=== PATIENT | male | born 1965 | race African-American/Black ===

== ENCOUNTER 2025-02-28 09:26 | Outpatient (AMB) | payer OTHER, SELFPAY ==
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
--- OUTSIDE RECORDS SUMMARY | 2025-02-28 10:33 | XMS_ITS | Clinical Summary ---
Author Organization [address] [facility] Address [address] [place] [address] Phone Care Team Providers Care Gear Repairer Name Role Phone Alex Casanova MD Primary Care Provider [phone] Allergies Active Allergy Reactions Criticality Noted Date Comments Egg 04/06/2018 Other Reaction(s): Hives/Urticaria Ibuprofen 04/06/2018 Other Reaction(s): Hives/Urticaria Medications budesonide-for moteroL (SYMBICORT) 160-4.5 mcg/actuation inhaler Inhale 2 Puffs into the lungs 2 times daily. Active omeprazole (PriLOSEC) [address] capsule TAKE 1 CAPSULE BY MOUTH EVERY DAY 3 Active OXcarbazepine (TRILEPTAL) 300 mg tablet Take 300 mg by mouth 2 times daily. Active tiotropium (Spiriva Respimat) 2.5 mcg/actuation inhalation spray Inhale into the lungs. Active zonisamide (ZONEGRAN) 100 mg capsule Take 100 mg by mouth daily. Take 1 capsule by mouth three times a day Active omeprazole (PriLOSEC) [address] capsule Take 1 capsule (40 mg total) by mouth 1 (one) time each day. 90 capsule 1 5 Active atorvastatin (LIPITOR) 40 mg tablet Take 1 tablet (40 mg total) by mouth 1 (one) time each day. 90 tablet 1 5 Active omeprazole (PriLOSEC) [address] capsule TAKE 1 CAPSULE BY MOUTH EVERY DAY 90 capsule 1 5 02/01/20 25 Discontinued atorvastatin (LIPITOR) 40 mg tablet TAKE 1 TABLET BY MOUTH EVERY DAY 90 tablet 1 0102/03/20 25 Discontinued Active Problems Problem Noted Date Diagnosed Date Emphysema lung ([facility] V24, [facility] V28) 2024 Pulmonary nodule 10/06/2024 Smoker 10/06/2024 Chronic bronchitis ([facility] V24, [facility] V28) Gastroesophageal reflux disease without esophagi tis 04/06/2018 Hyperlipidemia 04/06/2018 Seizure ([facility] V24, [facility] V28) 04/06/2018 Shoulder tendinitis, right 04/06/2018 Immunizations Immunization Administration Dates Next Due Pneumococcal conjugate 13 va lent (Prevnar 13, PCV13) 2mo and older 05/13/2019 Pneumococcal polysaccharide 23 valent (Pneumovax 23) 2yo and older 11/19/2021 Family History Relation Name Status Comments Father Mother Alive Social History Tobacco Use Types Packs/Day Years Used Date Smoking Tobacco: Every Day Cigarettes Started: 04/06/1977 Smokeless Tobacco: Never Tobacco Cessation:Ready to Q uit: Not Asked; Counseling Given: Not Answered Alcohol Use Standard Drinks/Week Comments No 0 (1 standard drink = 0.6 oz pur e alcohol) Sex and Gender Information Value Date Recorded Sex Assigned at Not on file Legal Sex Male 10:38 PM EST Gender Identity Not on file Sexual Orientation Not on file Obstetrics History Last Filed Vital Signs Vital Sign Reading Time Taken Comments Blood Pressure 95/58 10/14/2024 8:26 AM EDT Pulse 92 10/14/2024 8:26 AM EDT Temperature 36.7 C (98 F) 10/14/2024 8:26 AM EDT Respiratory Rate 20 10/14/2024 8:26 AM EDT Oxygen Saturation 99% 10/14/2024 8:26 AM EDT Inhaled Oxygen Concentration - - Weight 71.2 kg (157 lb) 10/14/2024 8:26 AM EDT Height 177.8 cm (5' 10 ) 10/14/2024 8:26 AM EDT Body Mass Index 22.53 10/14/2024 8:26 AM EDT Plan of Treatment Upcoming Encounters Date Type Department Care Team (Late st Contact Info) Description 04/20/2025 1:00 PM EST Appointment [facility] CT Scan [address] [place] [address] 05/16/2025 8:30 AM EST Office Visit Pulmonology - [address] [place] [address] Valdo Treviño MD [facility] [place] [address] Health Maintenance Due Date Last Done Comments DTaP,Tdap,and Td Vaccines (1 - Tdap) 1984 Hepatitis B Vaccines (1 of 3 - 19+ 3-dose series) 1984 RSV Immunization Adult Patients (1 - Risk 50-74 years 1-dose series) 11/01/2015 Zoster Vaccines (1 of 2) 11/01/2015 HIV Screening 04/20/2022 Hepatitis C Screening 04/20/2022 Social Influencers of Health Screening 04/20/2022 Depression Screening 05/12/2024 12/23/2022 COVID-19 Vaccine (3 - 2024-2 6 season) 2025 10/03/2020, 09/05/2020 Influenza Vaccine (#1) 2025 Pneumococcal Vaccine: 50+ Years (3 of 3 - PCV20 or PCV21) 11/19/2026 11/19/2021, 05/13/2019 Cholesterol Screening (Lipid Panel) 04/23/2029 04/23/2024, 10/22/2023, 10/22/2023 Colorectal Cancer Screening: Colonoscopy 10/21/2033 10/22/2023 HIB Vaccines Aged Out No longer eligi ble based on patient's age to complete this topic HPV Vaccines Aged Out No longer eligi ble based on patient's age to complete this topic Hepatitis A Vaccines Aged Out No long er eligible based on patient's age to complete this topic IPV Vaccines Aged Out No longer eligi ble based on patient's age to complete this topic MMR Vaccines Aged Out No longer eligi ble based on patient's age to complete this topic Meningococcal ACWY Vaccine Aged Out N o longer eligible based on patient's age to complete this topic Meningococcal B Vaccine Aged Out No l onger eligible based on patient's age to complete this topic RSV Immunization Patients Under 20 months Aged Out No longer eligible b ased on patient's age to complete this topic Varicella Vaccines Aged Out No longer eligible based on patient's age to complete this topic Procedures Procedure Name Priority Date/Time Associated Diagnosis Comments LIPID PANEL WITH REFLEX TO DIRECT LDL Routine 04/23/2024 7:41 AM EST Chronic bronchitis, unspecified chronic bronchitis type (CMS/HCC V24, CMS/HCC V28) Seizure (CMS/HCC V24, CMS/HCC V28) Pure hypercholesterolemia COLONOSCOPY Routine 10/22/2023 DEPRESSION SCREENING Routine 12/23/2022 from Last 3 Months or Most Recently Relevant to Health Maintenance Results * Lipid panel with reflex to direct LDL (04/23/2024 7:41 AM EST) Cholesterol 159 0 - 200 mg/dL LAB CHEMISTRY METHOD 04/23/2024 10:41 AM EST [facility] Triglycerides 118 0 - 150 mg/dL LAB CHEMISTRY METHOD 04/23/2024 10:41 AM EST [facility] HDL 51 >=40 mg/dL LAB CHEMISTRY METHOD 04/23/2024 10:41 AM [facility] LDL Calculated 84 0 - 100 mg/dL LAB CHEMISTRY METHOD 04/23/2024 10:41 AM [facility] VLDL Cholesterol Carlo 23.6 mg/dL LAB CHEMISTRY METHOD 04/23/2024 10:41 AM [facility] Non HDL Chol. (LDL+VLDL) 108 <145 mg/dL LAB CHEMISTRY METHOD 04/23/2024 10:41 AM [facility] Chol/HDL Ratio 3.1 0.0 - 4.4 LAB CHEMISTRY METHOD 04/23/2024 10:41 AM [facility] Blood Venous blood specimen / Unknown Venipuncture / Unknown 04/23/2024 7:41 AM EST 04/23/2024 7:41 AM EST Alex Casanova MD LAB BLOOD ORDERABLES Final Resul t [facility] [address] [place] [address], * Colonoscopy (10/22/2023) Colonoscopy No Interpretation , Abstracted Anatomical Region Laterality Modality Other us Historical Provider HEALTH MAINTENANCE Final Result * Depression Screening (12/23/2022) Pathologist [facility] Depression Screening Abstracted Historical Provider MD HEALTH MAINTENANCE Final Result from Last 3 Months or Most Recently Relevant to Health Maintenance Insurance [facility] Care Teams Gear Repairer Relationship Specialty Start Date End Date Alex Casanova MD [address] [facility] [address] [place] [address] PCP - General Internal Medicine 09/23/24
== END 2025-02-28 09:53 | disposition home or self-care (01) ==
LOC: HO.HSM 09:27
PROVIDERS: PCP Internal Medicine; Referring Provider Internal Medicine; Visit Provider Registered Nurse
DX: G40.509 Epileptic seizures related to external causes, not intractable, without status epilepticus (principal); R56.1 Post traumatic seizures
CPT/HCPCS: 99214

== ENCOUNTER → 2025-02-28 09:26 | Outpatient (BNVA) | payer OTHER, SELFPAY | PROVIDERS: PCP Internal Medicine; Referring Provider Internal Medicine; Visit Provider Registered Nurse | DX: G40.509 Epileptic seizures related to external causes, not intractable, without status epilepticus (principal); Z79.899 Other long term (current) drug therapy | CPT/HCPCS: 99212 ==